=== PATIENT | male | born 1965 | race Caucasian/White ===

== ENCOUNTER 2021-07-14 12:46 | Emergency (ER) | payer SELFPAY ==
[~2021-07-14] VITALS: Ht 167.6 cm; Wt 82.0 kg
[2021-07-14 13:09] VITALS: BP 161/90
[2021-07-14] MEDS ORDERED: LISI20TA31 MT (13:13)
[2021-07-14] MEDS ORDERED: GLIP10TA10 MT (13:13)
[2021-07-14] MEDS ORDERED: METF-874 MT (13:13)
[2021-07-14 15:23] LABS: BASOPHILS % 0.1 % (0.0-2.0); EOSINOPHILS % 0.7 % (0.0-5.0); HEMATOCRIT. 46.2 % (42.0-52.0); HEMOGLOBIN. 15.7 g/dL (14.0-18.0); LYMPHOCYTES % 27.5 % (20.0-50.0); MEAN CORPUSCULAR HEMOGLOBIN 30.9 pg (28.0-32.0); MEAN CORPUSCULAR VOLUME 90.7 fL (80.0-94.0); MONOCYTES % 7.7 % (2.0-8.0); PLATELET 254 x1000/uL (130-400); RED CELL DISTRIBUTION WIDTH 12.9 % (11.6-14.6)
[2021-07-14 15:27] LABS: CHLORIDE 100 mEq/L (98-107)
== END 2021-07-14 18:08 | disposition home or self-care (01) ==
LOC: ER 12:46
DX: E11.65 Type 2 diabetes mellitus with hyperglycemia (principal); I10 Essential (primary) hypertension; E78.00 Pure hypercholesterolemia, unspecified
CPT/HCPCS: 36415; 80053; 82962; 85025; 99283